=== PATIENT | male | born 1990 | race Caucasian/White ===

== ENCOUNTER 2016-05-03 21:44 | Emergency (ER) | payer BC, OTHER ==
[2016-05-03] MEDS ORDERED: SODIUM CHLORIDE 0.9% 1,000 ML IV STA ×2 (22:24)
[2016-05-03] MEDS ORDERED: METOCLOPRAMIDE 5 MG/ML 2 ML VIAL IVP STA (22:24)
[2016-05-03] MEDS ORDERED: HYDROmorphone 1 MG/ML 1 ML SYRINGE IVP STA (22:24)
--- NOTE | 2016-05-03 22:28 | ED ---
General Adult HPI - General Source: patient, RN notes reviewed, old records reviewed Mode of arrival: wheelchair Limitations: no limitations <Boy Johnston - Last Filed: 05/04/16 00:40> <John Brunson - Last Filed: 05/04/16 02:02> - General Chief complaint: Nausea/Vomiting/Diarrhea Stated complaint: NVD/Dizziness Time Seen by Provider: 05/03/16 22:15 - History of Present Illness Initial comments: Chief complaint history of present illness is a 25-year-old male with a history of Crohn's disease. He works at the [employer] and pupillary had vomiting and diarrhea. Patient thinks he may be having a flare of his Crohn's. He has not been taking his Remicade because the insurance hasn't okayed the restart of his Remicade. Do not see any blood in the vomit or diarrhea. (Boy Johnston) - Related Data Home Medications Medication Instructions Recorded Confirmed Omeprazole 20 mg PO DAILY 05/03/16 05/03/16 Previous Rx's Medication Instructions Recorded Acetaminophen-Codeine 300-30mg 1 tab PO Q6H PRN #20 tablet 05/04/16 [Tylenol #3] Allergies Allergy/AdvReac Type Severity Reaction Status Date / Time No Known Allergies Allergy Verified 01/31/16 01:32 Review of Systems ROS Other: All systems not noted in ROS Statement are negative. <Boy Johnston - Last Filed: 05/04/16 00:40> ROS Other: All systems not noted in ROS Statement are negative. <John Brunson - Last Filed: 05/04/16 02:02> ROS Statement: Those systems with pertinent positive or pertinent negative responses have been documented in the HPI. Review of systems no headache no visual acuity changes no chest pain or shortness of breath he has discomfort to the abdomen on the right side than the left. Nausea vomiting diarrhea ongoing for approximately 2 days. All systems reviewed were otherwise negative. Past medical problems significant for Crohn' s disease. Surgeries include bowel resection was Crohn's as well as cholecystectomy. Family history no cancer problems. Patient denies ALLERGIES nonsmoker drinks alcohol rarely socially. (Boy Johnston) Past Medical History Additional Past Medical History / Comment(s): CROHN'S History of Any Multi-Drug Resistant Organisms: None Reported Past Surgical History: Bowel Resection, Cholecystectomy Past Anesthesia/Blood Transfusion Reactions: No Reported Reaction Past Psychological History: No Psychological Hx Reported Smoking Status: Never smoker Past Alcohol Use History: Rare Past Drug Use History: Marijuana - Past Family History Mother Family Medical History: Diabetes Mellitus Additional Family Medical History / Comment(s): Heart disease Father Family Medical History: No Reported History <Boy Johnston - Last Filed: 05/04/16 00:40> General Exam Limitations: no limitations <PrestonBoy - Last Filed: 05/04/16 00:40> <John Brunson - Last Filed: 05/04/16 02:02> - General Exam Comments Initial Comments: General: The patient is awake and alert, in moderate distress because of nausea vomiting diarrhea abdominal pain mainly in the right side. Vital signs show temperature 98.1 pulse 74 respiratory rate 18 pulse ox 99% room air blood pressure 125/80. Eye: Pupils are equal, round and reactive to light, extra-ocular movements are intact ; there is normal conjunctiva bilaterally. Ears, nose, mouth and throat: There are moist mucous membranes Neck: The neck is supple, there is no tenderness Cardiovascular: There is a regular rate and rhythm. No murmur, rub or gallop is appreciated. Respiratory: Lungs are clear to auscultation, respirations are non-labored, breath sounds are equal. No wheezes, stridor, rales, or rhonchi. Gastrointestinal: Soft, non-distended, mildly tender right mid abdomen, abdomen without masses or organomegaly noted. There is no rebound or guarding present. No CVA tenderness. Bowel sounds are unremarkable. Back: There is no tenderness to palpation in the midline. There is no obvious deformity. No rashes noted. Musculoskeletal: Normal ROM, no tenderness, There is no pedal edema. There is no calf tenderness or swelling. Sensation intact. Pulses equal bilaterally 2+. Neurological: No neuro deficits. Skin: Skin is warm and dry and no rashes or lesions are noted. (Boy Johnston) Course <Boy Johnston - Last Filed: 05/04/16 00:40> <John Brunson - Last Filed: 05/04/16 02:02> Vital Signs 05/03/16 05/03/16 05/04/16 22:08 23:12 00:20 Temperature 98.1 F 97.7 F Pulse Rate 74 88 78 Respiratory 18 18 20 Rate Blood Pressure 125/80 135/68 123/75 O2 Sat by Pulse 99 99 98 Oximetry 05/04/16 01:58 Temperature 98.9 F Pulse Rate 85 Respiratory 18 Rate Blood Pressure 128/73 O2 Sat by Pulse 100 Oximetry - Reevaluation(s) Reevaluation #1: 05/04/16 02:00 Reevaluation patient reveals that he feels much improved this time we a long discussion regarding the findings she would like to go home he placed on Tylenol 3 for when necessary pain is follow-up with his doctor and return when necessary (John Brunson) Medical Decision Making - Lab Data Result diagrams: 05/03/16 23:00 05/03/16 23:00 <Boy Johnston - Last Filed: 05/04/16 00:40> - Lab Data Result diagrams: 05/03/16 23:00 05/03/16 23:00 <John Brunson - Last Filed: 05/04/16 02:02> - Medical Decision Making Medical decision making; white count 8 hemoglobin 14 hematocrit of 42. Potassium 3.3, BUN 9 creatinine 0.8 with a GFR greater than 60. Amylase lipase within normal limits. Chest x-ray was done and reviewed by radiologist's his final impression is normal chest no change. As read by Dr. Sr X-ray of the abdomen was done and reviewed by radiologist his impression is bowel gas pattern is normal. There is no sign of intestinal obstruction or pneumoperitoneum. Fecal pattern is normal. There are clips from cholecystectomy. Lung bases are clear. There is no sign of a mass. There are no pathologic calcifications over the kidneys. There are surgical clips in the right mid abdomen. Impression; nonacute abdomen. No change. As read by Dr. Sr Plant this size for rehydration, pain management and IV site Medrol. The patient feels a thinks he may build go home tonight. Final disposition will be determined by Dr. Brunson (Boy Johnston) - Lab Data Lab Results 05/03/16 05/03/16 Range/Units 23:00 23:00 WBC 8.0 (3.8-10.6) k/uL RBC 4.90 (4.30-5.90) m/uL Hgb 14.6 (13.0-17.5) gm/dL Hct 42.0 (39.0-53.0) % MCV 85.8 (80.0-100.0) fL MCH 29.8 (25.0-35.0) pg MCHC 34.8 (31.0-37.0) g/dL RDW 12.9 (11.5-15.5) % Plt Count 258 (150-450) k/uL Neutrophils % 56 % Lymphocytes % 23 % Monocytes % 12 % Eosinophils % 4 % Basophils % 1 % Neutrophils # 4.5 (1.3-7.7) k/uL Lymphocytes # 1.9 (1.0-4.8) k/uL Monocytes # 1.0 (0-1.0) k/uL Eosinophils # 0.3 (0-0.7) k/uL Basophils # 0.1 (0-0.2) k/uL Sodium 142 (137-145) mmol/L Potassium 3.3 L (3.5-5.1) mmol/L Chloride 108 H (98-107) mmol/L Carbon Dioxide 20 L (22-30) mmol/L Anion Gap 14 mmol/L BUN 9 (9-20) mg/dL Creatinine 0.80 (0.66-1.25) mg/dL Est GFR (MDRD) Af Amer >60 (>60 ml/min/1.73 sqM) Est GFR (MDRD) Non-Af >60 (>60 ml/min/1.73 sqM) Glucose 83 (74-99) mg/dL Calcium 9.2 (8.4-10.2) mg/dL Total Bilirubin 4.1 H (0.2-1.3) mg/dL AST 31 (17-59) U/L ALT 71 (21-72) U/L Alkaline Phosphatase 97 (38-126) U/L Total Protein 7.0 (6.3-8.2) g/dL Albumin 4.2 (3.5-5.0) g/dL Amylase 47 (30-110) U/L Lipase 42 (23-300) U/L Disposition <Boy Johnston - Last Filed: 05/04/16 00:40> <John Brunson - Last Filed: 05/04/16 02:02> Clinical Impression: Abdominal pain, Crohns disease Disposition: HOME SELF-CARE Condition: Good Instructions: Abdominal Pain (ED), Crohn Disease (ED) Prescriptions: Acetaminophen-Codeine 300-30mg [Tylenol #3] 1 tab PO Q6H PRN #20 tablet PRN Reason: Pain
--- NOTE | 2016-05-03 23:21 | XR ---
EXAMINATION TYPE: XR chest 2V DATE OF EXAM: 05/03/2016 11:15 PM COMPARISON: 03/24/2015 HISTORY: Cough and cold TECHNIQUE: Frontal and lateral views of the chest are obtained. FINDINGS: Heart and mediastinum are normal. Lungs are clear. Diaphragm is normal. Bony thorax is int act. The pulmonary vascularity is normal. IMPRESSION: Normal chest. No change.
[2016-05-03 23:23] LABS: Basophils # (A) 0.1 k/uL (0-0.2); Basophils % (A) 1 %; CH 30.9; CHCM 36.2; Eosinophils # (A) 0.3 k/uL (0-0.7); Eosinophils % (A) 4 %; HDW 2.97; HGB 14.6 gm/dL (13.0-17.5); Luc # (Auto) 0.29; Luc % (Auto) 4; Lymphocytes # (A) 1.9 k/uL (1.0-4.8); Lymphocytes % (A) 23 %; MCH 29.8 pg (25.0-35.0); MCHC 34.8 g/dL (31.0-37.0); MCV 85.8 fL (80.0-100.0); Mean Platelet Volume 7.8; Monocytes % (A) 12 %; Neutrophils # (A) 4.5 k/uL (1.3-7.7); Neutrophils % (A) 56 %; RDW 12.9 % (11.5-15.5); WBC (Perox) 7.86
[2016-05-03 23:37] LABS: ALT 71 U/L (21-72); AST 31 U/L (17-59); Alkaline Phosphatase 97 U/L (38-126); Amylase 47 U/L (30-110); Anion Gap 14 mmol/L; Blood Urea Nitrogen 9 mg/dL (9-20); Calcium 9.2 mg/dL (8.4-10.2); Carbon Dioxide 20 mmol/L (22-30); Chloride 108 mmol/L (98-107); Glucose 83 mg/dL (74-99); Non-African American GFR(MDRD) >60 (>60 ml/min/1.73 sqM); Potassium 3.3 mmol/L (3.5-5.1); Sodium 142 mmol/L (137-145); Total Bilirubin 4.1 mg/dL (0.2-1.3)
--- NOTE | 2016-05-04 00:10 | XR ---
EXAMINATION TYPE: XR abdomen 2V DATE OF EXAM: 05/03/2016 11:50 PM COMPARISON: 12/26/2015 HISTORY: Abdominal pain TECHNIQUE: 2 views FINDINGS: Bowel gas pattern is normal. There is no sign of intestinal obstruction or pneumoperitoneum . Fecal pattern is normal. There are clips from cholecystectomy. Lung bases are clear. There is no si gn of a mass. There are no pathologic calcifications over the kidneys. There are surgical clips in th e right mid abdomen. IMPRESSION: Nonacute abdomen. No change.
[2016-05-04] MEDS ORDERED: methylPREDNISolone SOD SUCCI 125 MG/2 ML VIAL IV STA (00:43)
[2016-05-04] MEDS ORDERED: HYDROmorphone 1 MG/ML 1 ML SYRINGE IVP STA (00:43)
[2016-05-04 01:59] VITALS: BP 128/73; PULSE 85; RESP 18; TEMP 98.9
== END 2016-05-04 02:08 | disposition home or self-care (01) ==
LOC: EC 21:44
DX: K50.90 Crohn's disease, unspecified, without complications (principal); Z79.899 Other long term (current) drug therapy
CPT/HCPCS: 36415; 80053; 82150; 83690; 85025; 71020; 74020; 99284; 96374; 96375 ×2; 96376; 96361 ×3; J2765; J2930; J1170 ×2

== ENCOUNTER 2016-05-05 17:54 | Inpatient (IN) | payer BC, OTHER ==
[2016-05-05] MEDS ORDERED: SODIUM CHLORIDE 0.9% 2,000 ML IV STA (18:35)
[2016-05-05] MEDS ORDERED: SODIUM CHLORIDE 0.9% 1,000 ML IV STA (18:35)
[2016-05-05] MEDS ORDERED: ONDANSETRON 4 MG/2 ML VIAL IVP STA ×2 (18:35→21:26)
[2016-05-05] MEDS ORDERED: PANTOPRAZOLE 40 MG/10 ML VIAL IVP STA (18:35)
[2016-05-05] MEDS ORDERED: KETOROLAC 30 MG/ML 1 ML VIAL IVP STA (18:36)
[2016-05-05 18:50] LABS: Basophils # (A) 0.1 k/uL (0-0.2); Basophils % (A) 1 %; Eosinophils # (A) 0.2 k/uL (0-0.7); Eosinophils % (A) 3 %; HCT 44.3 % (39.0-53.0); HGB 14.6 gm/dL (13.0-17.5); Luc # (Auto) 0.22; Luc % (Auto) 3; Lymphocytes # (A) 1.9 k/uL (1.0-4.8); Lymphocytes % (A) 29 %; MCH 29.5 pg (25.0-35.0); MCHC 33.1 g/dL (31.0-37.0); MCV 89.2 fL (80.0-100.0); Mean Platelet Volume 8.1; Monocytes # (A) 0.7 k/uL (0-1.0); Monocytes % (A) 10 %; Neutrophils # (A) 3.6 k/uL (1.3-7.7); Neutrophils % (A) 54 %; RBC 4.97 m/uL (4.30-5.90); RDW 13.3 % (11.5-15.5); WBC 6.7 k/uL (3.8-10.6); WBC (Perox) 6.91
[2016-05-05 18:59] LABS: ALT 390 U/L (21-72); AST 225 U/L (17-59); Alkaline Phosphatase 139 U/L (38-126); Amylase 64 U/L (30-110); Anion Gap 14 mmol/L; Blood Urea Nitrogen 10 mg/dL (9-20); Calcium 9.2 mg/dL (8.4-10.2); Carbon Dioxide 22 mmol/L (22-30); Chloride 107 mmol/L (98-107); Glucose 89 mg/dL (74-99); Magnesium 1.8 mg/dL (1.6-2.3); Non-African American GFR(MDRD) >60 (>60 ml/min/1.73 sqM); Potassium 3.6 mmol/L (3.5-5.1); Sodium 143 mmol/L (137-145); Total Bilirubin 3.9 mg/dL (0.2-1.3); Total Protein 7.1 g/dL (6.3-8.2)
[2016-05-05] MEDS ORDERED: HYDROmorphone 1 MG/ML 1 ML SYRINGE IM STA ×2 (19:16→21:19)
--- NOTE | 2016-05-05 19:22 | XR ---
Abdomen HISTORY: Pain Frontal view of the abdomen on 2 images correlated to prior abdomen dated 03 May 2016 There is no pneumoperitoneum or bowel obstruction. Air-fluid levels are present. Surgical clips in th e right upper quadrant. Bowel suture also present. Postop changes. There may be an underlying ileus, follow-up as indicated
[2016-05-05 19:57] LABS: Appearance,Urine Clear (Clear); Bilirubin,Urine 1+ (Negative); Glucose,Urine (UA) Negative (Negative); Ketones,Urine Trace (Negative); Leukocyte Esterase,Urine Negative (Negative); Nitrite,Urine Negative (Negative); Protein,Urine Trace (Negative); Specific Gravity,Urine 1.018 (1.001-1.035); UA Billing (MACRO vs. MICRO) CHEM
--- NOTE | 2016-05-05 21:23 | ED ---
Abdominal Pain HPI - General Chief Complaint: Abdominal Pain Stated Complaint: Abd.pain Time Seen by Provider: 05/05/16 18:17 Source: patient, family, RN notes reviewed, old records reviewed Mode of arrival: wheelchair Limitations: no limitations - History of Present Illness Initial Comments: This is a 25-year-old male history Crohn's disease who came back in [facility] for complaints of abdominal pain nausea vomiting. Is here recently did get improvement was sent home since she his request he that time because of the above stated symptoms also his mother states [facility] The pain is severe sharp dull aching in nature midabdominal nothing on the ordinary however. He has had a cholecystectomy in the past he has had episodes of jaundice apparently per his mother and elevated liver enzymes. MD Complaint: abdominal pain, other - Related Data Home Medications Medication Instructions Recorded Confirmed Omeprazole 20 mg PO DAILY 05/03/16 05/05/16 Previous Rx's Medication Instructions Recorded Acetaminophen-Codeine 300-30mg 1 tab PO Q6H PRN #20 tablet 05/04/16 [Tylenol #3] Allergies Allergy/AdvReac Type Severity Reaction Status Date / Time No Known Allergies Allergy Verified 05/05/16 18:29 Review of Systems ROS Statement: Those systems with pertinent positive or pertinent negative responses have been documented in the HPI. ROS Other: All systems not noted in ROS Statement are negative. Past Medical History Additional Past Medical History / Comment(s): CROHN'S History of Any Multi-Drug Resistant Organisms: None Reported Past Surgical History: Bowel Resection, Cholecystectomy Past Anesthesia/Blood Transfusion Reactions: No Reported Reaction Past Psychological History: No Psychological Hx Reported Smoking Status: Never smoker Past Alcohol Use History: Rare Past Drug Use History: Marijuana - Past Family History Mother Family Medical History: Diabetes Mellitus Additional Family Medical History / Comment(s): Heart disease Father Family Medical History: No Reported History General Exam - General Exam Comments Initial Comments: This is a well-developed well-nourished awake alert oriented x 3 male Limitations: no limitations Course Vital Signs 05/05/16 05/05/16 18:12 21:18 Temperature 98.4 F 98.0 F Pulse Rate 64 72 Respiratory 17 20 Rate Blood Pressure 115/79 127/86 O2 Sat by Pulse 100 98 Oximetry Medical Decision Making - Medical Decision Making I did reevaluate the patient several occasions he get them all improvement I did discuss the case with him and his family and with Dr. De La Garza the patient will be admitted with consultation by GI. - Lab Data Result diagrams: 05/05/16 18:25 05/05/16 18:25 Lab Results 05/05/16 05/05/16 05/05/16 Range/Units 18:25 18:25 19:35 WBC 6.7 (3.8-10.6) k/uL RBC 4.97 (4.30-5.90) m/uL Hgb 14.6 (13.0-17.5) gm/dL Hct 44.3 (39.0-53.0) % MCV 89.2 (80.0-100.0) fL MCH 29.5 (25.0-35.0) pg MCHC 33.1 (31.0-37.0) g/dL RDW 13.3 (11.5-15.5) % Plt Count 272 (150-450) k/uL Neutrophils % 54 % Lymphocytes % 29 % Monocytes % 10 % Eosinophils % 3 % Basophils % 1 % Neutrophils # 3.6 (1.3-7.7) k/uL Lymphocytes # 1.9 (1.0-4.8) k/uL Monocytes # 0.7 (0-1.0) k/uL Eosinophils # 0.2 (0-0.7) k/uL Basophils # 0.1 (0-0.2) k/uL Sodium 143 (137-145) mmol/L Potassium 3.6 (3.5-5.1) mmol/L Chloride 107 (98-107) mmol/L Carbon Dioxide 22 (22-30) mmol/L Anion Gap 14 mmol/L BUN 10 (9-20) mg/dL Creatinine 0.92 (0.66-1.25) mg/dL Est GFR (MDRD) Af Amer >60 (>60 ml/min/1.73 sqM) Est GFR (MDRD) Non-Af >60 (>60 ml/min/1.73 sqM) Glucose 89 (74-99) mg/dL Calcium 9.2 (8.4-10.2) mg/dL Magnesium 1.8 (1.6-2.3) mg/dL Total Bilirubin 3.9 H (0.2-1.3) mg/dL AST 225 H (17-59) U/L ALT 390 H (21-72) U/L Alkaline Phosphatase 139 H (38-126) U/L Total Protein 7.1 (6.3-8.2) g/dL Albumin 4.2 (3.5-5.0) g/dL Amylase 64 (30-110) U/L Lipase 54 (23-300) U/L Urine Color Dark Yellow Urine Appearance Clear (Clear) Urine pH 6.0 (5.0-8.0) Ur Specific [place] 1.018 (1.001-1.035) Urine Protein Trace H (Negative) Urine Glucose (UA) Negative (Negative) Urine Ketones Trace H (Negative) Urine Blood Negative (Negative) Urine Nitrate Negative (Negative) Urine Bilirubin 1+ H (Negative) Urine Urobilinogen 6.0 (<2.0) mg/dL Ur Leukocyte Esterase Negative (Negative) - Radiology Data Radiology results: report reviewed (I did review the x-rays no acute findings some evidence of a), image reviewed Disposition Clinical Impression: Abdominal pain, Exacerbation of Crohn's disease, Jaundice Disposition: ADMITTED IP TO THIS [facility] Condition: Stable
[2016-05-05] MEDS ORDERED: NALOXONE 0.4 MG/ML 1 ML VIAL IV PRN (21:24)
[2016-05-05 22:36] VITALS: BMI 29.0
[2016-05-05] MEDS: SODIUM CHLORIDE 0.9% 1,000 ML IV SCH (22:39)
[2016-05-05] MEDS ORDERED: PROCHLORPERAZINE 10 MG TAB PO PRN (23:10)
[2016-05-06] MEDS: HYDROmorphone 1 MG/ML 1 ML SYRINGE IV PRN ×8 (00:29→21:55)
[2016-05-06 02:10] LABS: Glucose,Whole Blood 83 mg/dL (75-99)
[2016-05-06] MEDS: SODIUM CHLORIDE 0.9% 1,000 ML IV SCH ×3 (04:14→21:00)
[2016-05-06] MEDS: ONDANSETRON 4 MG/2 ML VIAL IVP PRN ×3 (06:12→21:55)
[2016-05-06 07:36] LABS: Glucose,Whole Blood 75 mg/dL (75-99)
[2016-05-06] MEDS: PANTOPRAZOLE 40 MG/10 ML VIAL IVP SCH ×2 (08:46→21:55)
--- NOTE | 2016-05-06 09:26 | US ---
EXAMINATION TYPE: US abdomen limited DATE OF EXAM: 05/06/2016 8:25 AM COMPARISON: Previous study dated 03/24/2015. CLINICAL HISTORY: Rule out pancreatic mass. EXAM MEASUREMENTS: Liver Length: 14.3 cm Gallbladder Wall: Surgically absent cm CBD: 0.4 cm Right Kidney: 9.6 x 3.8 x 4.5 cm TECHNOLOGIST IMPRESSION: wnl Pancreas: portions visualized wnl, partially obscured by bowel gas Liver: Increased attenuation, echogenic Gallbladder: Surgically absent Evidence for sonographic Swartz's sign: no CBD: wnl Right Kidney: wnl IMPRESSION: Visualized portions of the pancreas appear normal. No pancreatic masses seen at this time.
[2016-05-06 11:56] LABS: Glucose,Whole Blood 71 mg/dL (75-99)
--- NOTE | 2016-05-06 13:08 | HP ---
DATE OF ADMISSION: A 25-year-old with history of Crohn's disease and with history of primary sclerosing cholangitis came in with complaints of nausea, vomiting and increased yellowish discoloration. Patient's bilirubin was 3.9 when he came in with minimally elevated AST and ALT secondary to primary sclerosing cholangitis. The patient is suppose to take Remicade Patient is awaiting insurance approval for that. Because of nausea and vomiting, the patient came into the hospital. Patient was complaining of 10/10, sharp pain in the right mid and lower abdominal quadrants. Denied any diarrhea. Nonradiating pain in that area. REVIEW OF SYSTEMS: CONSTITUTIONAL: No fever, no malaise, no fatigue. HEENT: No recent visual problems or hearing problems. Denied any sore throat. CARDIOVASCULAR: No chest pain, orthopnea, PND, no palpitations, no syncope. PULMONARY: No shortness of breath, no cough, no hemoptysis. GASTROINTESTINAL: As described in HPI. NEUROLOGICAL: No headaches, no weakness, no numbness. HEMATOLOGICAL: Denies any bleeding or petechiae. GENITOURINARY: Denies any burning micturition, frequency, or urgency. MUSCULOSKELETAL/RHEUMATOLOGICAL: Denies any joint pain, swelling, or any muscle pain. ENDOCRINE: Denies any polyuria or polydipsia. The rest of the 14 point review of systems is negative. HOME MEDICATIONS: 1. Omeprazole. 2. Tylenol with Codeine. PAST MEDICAL HISTORY: Significant for Crohn's, primary biliary cirrhosis. Patient had a bowel resection, cholecystectomy. SOCIAL HISTORY: Denied any smoking or alcohol abuse. Occasional use of marijuana. FAMILY HISTORY: Mother had diabetes mellitus and heart disease. Father no reported history. PHYSICAL EXAMINATION: VITAL SIGNS: Temperature 97.9, pulse of 64, respiratory rate of 17, blood pressure is 114/72, saturating at 97% on room air. GENERAL: The patient is alert and oriented x3, not in any acute distress. Well developed, well nourished. HEENT: Pupils are round and equally reacting to light. EOMI. No scleral icterus. No conjunctival pallor. Normocephalic, atraumatic. No pharyngeal erythema. No thyromegaly. CARDIOVASCULAR: S1 and S2 present. No murmurs, rubs, or gallops. PULMONARY: Chest is clear to auscultation, no wheezing or crackles. ABDOMEN: Minimal tenderness in the right middle and lower quadrants. No rebound or rigidity. Abdomen is soft. MUSCULOSKELETAL: No joint swelling or deformity. EXTREMITIES: No cyanosis, clubbing, or pedal edema. NEUROLOGICAL: Gross neurological examination did not reveal any focal deficits. SKIN: No rashes. LABORATORY DATA: CBC, CMP are abnormal for elevated bilirubin of 3.9, AST 225 and ALT of 390. Trace protein in the urine, trace ketones in the urine, 1+ bilirubin in the urine. ASSESSMENT AND PLAN: 1. Exacerbation of Crohn's . Gastroenterology is evaluating right now I will leave the decision of starting on any steroids to them. Patient should get Remicade, awaiting approval as mentioned above. 2. Elevated bilirubin secondary to primary biliary cirrhosis. Patient underwent extensive evaluation for that in the past. 3. Elevated liver enzymes secondary to that as well. Will repeat liver enzymes tomorrow to make sure they are not going up. 4. Marijuana use. Counseling was provided regarding that. Patient should be started on clear liquid diet as tolerated. Continue with pain medications. I will obtain an ESR and CRP.
--- NOTE | 2016-05-06 13:14 | P.CONS ---
History of Present Illness - Reason for Consult Consult date: 05/06/16 Jaundice Requesting physician: Jonas Saxena - History of Present Illness 25-year-old gentleman patient Dr. 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 Consultation requested for jaundice. Patient noticed his urine to be more dark over the last few days as well as his friends noticing him to appear more yellow. Denies acholic stools. Denies abdominal pain but reports fever of 102 on Wednesday. He has been afebrile since admission. He is followed closely by [facility] wick tender Dr. Crocker; last visit was March 2016 with recommendations to start Remicade however due to insurance changes he is waiting for insurance approval. Denies hematemesis, hematochezia, or melena. White count 6.7. Hemoglobin 14.6. Total bilirubin 4.1-3.9. AST 31-225. ALT 71-390. Alkaline phosphates 139. No changes in medications. No sick contacts. No recent travels. Ultrasound abdomen reported visualized portions of the pancreas normal. CBD 0.4 cm. Upon review of medical records average total bilirubin can range between 1.5- 3.1. Review of Systems Constitutional: Denies fever, chills, sweats, weight gain, or loss. HEENT: Negative for migraines, blurred vision or loss, earaches, drainage, tinnitus, oral mucosal lesions, dysphagia, or odynophagia. Cardiac: Negative for chest pain, arrhythmias, or palpitation. Respiratory: Negative for shortness of breath, hemoptysis, cough, or sputum production. Gastrointestinal: See HPI for pertinent findings. Genitourinary: Negative for hematuria, urgency, frequency, polyuria, dysuria, or penile discharge. Musculoskeletal: Negative for muscle aches, swelling, arthritis, and arthralgias. Neurologic: Negative for stroke or TIA. Endocrine: Negative for thyroid problems. Skin: Negative for rash or itching. Psychiatric: Negative history for depression and anxiety All systems: negative (See HPI) Past Medical History Additional Past Medical History / Comment(s): CROHN'S History of Any Multi-Drug Resistant Organisms: None Reported Past Surgical History: Bowel Resection, Cholecystectomy Past Anesthesia/Blood Transfusion Reactions: No Reported Reaction Past Psychological History: No Psychological Hx Reported Smoking Status: Never smoker Past Alcohol Use History: Rare Past Drug Use History: Marijuana - Past Family History Mother Family Medical History: Diabetes Mellitus Additional Family Medical History / Comment(s): Heart disease Father Family Medical History: No Reported History Medications and Allergies Home Medications Medication Instructions Recorded Confirmed Type Omeprazole 20 mg PO DAILY 05/03/16 05/05/16 History Allergies Allergy/AdvReac Type Severity Reaction Status Date / Time No Known Allergies Allergy Verified 05/05/16 18:29 Physical Exam Vitals: Vital Signs Temp Pulse Resp BP Pulse Ox 05/06/16 07:58 17 05/06/16 07:00 97.9 F 64 12 114/72 97 05/05/16 23:00 97.9 F 61 17 133/66 98 Intake and Output 05/05/16 05/06/16 05/06/16 22:59 06:59 14:59 Intake Total 1200 300 Output Total 300 Balance 1200 0 Intake: IV 300 Sodium Chloride 0.9% 1, 300 000 ml @ 150 mls/hr IV . Q6H40M [facility] Rx#:[id number] Intake, IV Titration 1200 Amount Sodium Chloride 0.9% 1, 1200 000 ml @ 150 mls/hr IV . Q6H40M [facility] Rx#:[id number] Output: Urine 300 Other: Voiding Method Toilet Toilet Urinal # Voids 1 Weight 69.853 kg Results CBC & Chem 7: 05/05/16 18:25 05/05/16 18:25 Labs: Abnormal Lab Results - Last 24 Hours (Table) 05/06/16 Range/Units 11:54 POC Glucose (mg/dL) 71 L (75-99) mg/dL US - abdomen: report reviewed (Reviewed by Dr. Salter) Assessment and Plan (1) Jaundice Narrative/Plan: 25-year-old gentleman with a history of primary sclerosing cholangitis and underlying Crohn's ileitis presents with jaundice with elevated transaminases and hyperbilirubinemia. Jaundice is secondary to his underlying PSC presently not on maintenance medications due to insurance issues. Status: Acute (2) Primary sclerosing cholangitis Status: Chronic (3) Crohn's ileitis Status: Chronic Plan: 1. Avoid steroids. 2. Actigall 300 mg twice daily. Patient is waiting for insurance approval to start Remicade. 3. Supportive measures IV hydration. Repeat chemistries in the morning. 4. Will follow with you. Thank you for this kind referral and the opportunity to participate in the care of your patient. This consultation was discussed with Dr. Salter. The impression and plan of care have been directed as dictated.
[2016-05-06 17:16] LABS: Glucose,Whole Blood 75 mg/dL (75-99)
[2016-05-06] MEDS: URSODIOL 300 MG CAP PO SCH (17:49)
[2016-05-06 20:47] LABS: Glucose,Whole Blood 80 mg/dL (75-99)
[2016-05-07] MEDS: HYDROmorphone 1 MG/ML 1 ML SYRINGE IV PRN ×8 (01:05→22:54)
[2016-05-07 02:35] LABS: Glucose,Whole Blood 86 mg/dL (75-99)
[2016-05-07] MEDS: SODIUM CHLORIDE 0.9% 1,000 ML IV SCH ×5 (03:06→23:05)
[2016-05-07 07:23] LABS: Glucose,Whole Blood 72 mg/dL (75-99)
[2016-05-07] MEDS: PANTOPRAZOLE 40 MG/10 ML VIAL IVP SCH ×2 (07:46→21:15)
[2016-05-07] MEDS: URSODIOL 300 MG CAP PO SCH ×2 (07:47→16:56)
[2016-05-07] MEDS: ONDANSETRON 4 MG/2 ML VIAL IVP PRN ×2 (08:18→18:31)
[2016-05-07 09:24] LABS: CH 30.5; CHCM 33.9; HCT 41.5 % (39.0-53.0); HDW 2.89; HGB 13.7 gm/dL (13.0-17.5); MCH 29.9 pg (25.0-35.0); MCHC 33.1 g/dL (31.0-37.0); MCV 90.4 fL (80.0-100.0); Mean Platelet Volume 7.2; RBC 4.59 m/uL (4.30-5.90); WBC 5.8 k/uL (3.8-10.6)
[2016-05-07 10:07] LABS: ALT 230 U/L (21-72); AST 70 U/L (17-59); Alkaline Phosphatase 123 U/L (38-126); Anion Gap 13 mmol/L; Blood Urea Nitrogen 6 mg/dL (9-20); Calcium 8.7 mg/dL (8.4-10.2); Carbon Dioxide 24 mmol/L (22-30); Chloride 106 mmol/L (98-107); Glucose 82 mg/dL (74-99); Non-African American GFR(MDRD) >60 (>60 ml/min/1.73 sqM); Potassium 3.6 mmol/L (3.5-5.1); Sodium 143 mmol/L (137-145); Total Bilirubin 3.2 mg/dL (0.2-1.3); Total Protein 6.3 g/dL (6.3-8.2)
[2016-05-07 11:16] LABS: Glucose,Whole Blood 86 mg/dL (75-99)
--- NOTE | 2016-05-07 11:48 | P.PN ---
Subjective Principal diagnosis: Jaundice primary sclerosing cholangitis Crohn's disease 25-year-old male well-known to the GI service with a history of primary sclerae and cholangitis and underlying Crohn's disease admitted with jaundice. Liver function tests stable. Reports mild abdominal pain. Tolerating liquids. Afebrile. Objective - Vital Signs Vital signs: Vital Signs Temp 98.2 F 05/07/16 07:00 Pulse 65 05/07/16 08:00 Resp 18 05/07/16 08:00 BP 118/77 05/07/16 07:00 Pulse Ox 98 05/07/16 07:00 Intake & Output 05/06/16 05/07/16 05/07/16 18:59 06:59 18:59 Intake Total 1050 1650 300 Output Total 300 300 Balance 750 1650 0 Weight 69.853 kg Intake: IV 1050 1350 Sodium Chloride 0.9% 1, 1050 1350 000 ml @ 150 mls/hr IV . Q6H40M OTILIA Rx#:[id number] Oral 300 300 Output: Urine 300 300 Other: Voiding Method Toilet Toilet Toilet Urinal Urinal Urinal # Voids 2 2 2 - Exam General appearance: The patient is alert, oriented, in no acute distress. Slightly jaundiced. HET: Head is normocephalic and atraumatic. Pupils are equal and reactive. Sclerae icterus. Oropharynx is clear without lesions. Neck: Supple without lymphadenopathy. Trachea midline. Heart: S1 S2. Regular rate and rhythm. Lungs: No crackles or wheezes are heard. Abdomen: Soft, mild tenderness midepigastrium right upper quadrant, nondistended with bowel sounds. No peritoneal signs. No palpable organomegaly or masses. Extremities: Normal skin color and turgor. No cyanosis, rash, ulceration, clubbing, or edema. Radial and pedal pulses are 2/4 bilaterally. Neurological: No focal deficits. Strength and sensation are grossly intact. - Labs CBC & Chem 7: 05/07/16 08:51 05/07/16 08:51 Labs: Abnormal Lab Results - Last 24 Hours (Table) 05/06/16 05/07/16 05/07/16 Range/Units 11:54 07:18 08:51 BUN 6 L (9-20) mg/dL POC Glucose (mg/dL) 71 L 72 L (75-99) mg/dL Total Bilirubin 3.2 H (0.2-1.3) mg/dL AST 70 H (17-59) U/L ALT 230 H (21-72) U/L Assessment and Plan (1) Jaundice Narrative/Plan: 25-year-old gentleman with a history of primary sclerosing cholangitis and underlying Crohn's ileitis presents with jaundice with elevated transaminases and hyperbilirubinemia. Jaundice is secondary to his underlying PSC presently not on maintenance medications due to insurance issues. Status: Acute (2) Primary sclerosing cholangitis Status: Chronic (3) Crohn's ileitis Status: Chronic Plan: 1. Avoid steroids. Advance diet as tolerated. 2. Actigall 300 mg twice daily. Patient is waiting for insurance approval to start Remicade. 3. Supportive measures IV hydration. Repeat chemistries in the morning. 4. Will follow with you. Assessment and plan of care discussed with Dr. Salter.
[2016-05-07 17:07] LABS: Glucose,Whole Blood 78 mg/dL (75-99)
--- NOTE | 2016-05-07 19:14 | PN ---
Patient is a 25-year-old with Crohn's disease, admitted for possibility of Crohn's exacerbation, although patient's steroids were discontinued as per recommendations from Gastroenterology. Patient is still unable to tolerate a diet very well, because of which I am holding his discharge, and patient was started on Ursodiol for his hyperbilirubinemia secondary to primary sclerosing cholangitis. His liver enzymes continue to be improving. REVIEW OF SYSTEMS: CARDIOVASCULAR: No chest pain, no orthopnea, no PND, no palpitations. PULMONARY: Denied any shortness of breath. No cough or hemoptysis. GASTROINTESTINAL: As described in HPI. NEUROLOGIC: No headaches, no weakness, no numbness. Medications were reviewed. PHYSICAL EXAMINATION: VITAL SIGNS: Temperature 97.7, pulse of 61, respiratory rate of 18. Blood pressure is 108/74. Saturating at 95% on room air. GENERAL: The patient is alert and oriented x3, not in any acute distress. Well developed, well nourished. HEENT: Pupils are round and equally reacting to light. Patient does have some scleral icterus. CARDIOVASCULAR: S1 and S2 present. No murmurs, rubs, or gallops. PULMONARY: Chest is clear to auscultation, no wheezing or crackles. ABDOMEN: Soft, nontender, nondistended, normoactive bowel sounds. No palpable organomegaly. MUSCULOSKELETAL: No joint swelling or deformity. EXTREMITIES: No cyanosis, clubbing, or pedal edema. NEUROLOGICAL: Gross neurological examination did not reveal any focal deficits. SKIN: No rashes. LABORATORY DATA: CBC, CMP are abnormal for mildly elevated bilirubin of 3.2. AST of 70. ALT of 230. ASSESSMENT AND PLAN: 1. Possible exacerbation of Crohn's. 2. Primary sclerosing cholangitis with elevated liver enzymes and elevated bilirubin, for which patient is on Ursodiol as a binding agent for bilirubin. 3. Marijuana use. Counseling was provided. 4. Nausea, vomiting secondary to probable Crohn's exacerbation. PLAN: As mentioned above. Continue to advance the diet. Continue Ursodiol. Patient is awaiting approval for Remicade.
[2016-05-07 19:55] LABS: Glucose,Whole Blood 73 mg/dL (75-99)
[2016-05-07 21:06] LABS: Glucose,Whole Blood 114 mg/dL (75-99)
[2016-05-07 22:48] VITALS: RESP 16
[2016-05-08] MEDS: HYDROmorphone 1 MG/ML 1 ML SYRINGE IV PRN ×3 (01:38→08:12)
[2016-05-08 02:00] LABS: Glucose,Whole Blood 84 mg/dL (75-99)
[2016-05-08] MEDS: SODIUM CHLORIDE 0.9% 1,000 ML IV SCH (05:13)
[2016-05-08] MEDS: ONDANSETRON 4 MG/2 ML VIAL IVP PRN (05:14)
[2016-05-08 06:50] LABS: Glucose,Whole Blood 73 mg/dL (75-99)
[2016-05-08] MEDS: URSODIOL 300 MG CAP PO SCH (07:43)
[2016-05-08] MEDS: PANTOPRAZOLE 40 MG/10 ML VIAL IVP SCH (07:43)
[2016-05-08 08:25] VITALS: BP 116/83; PULSE 63; TEMP 98.1
[2016-05-08] MEDS ORDERED: traMADol 50 MG TAB PO PRN (08:50)
[2016-05-08 11:37] LABS: Glucose,Whole Blood 83 mg/dL (75-99)
--- NOTE | 2016-05-08 21:57 | DS ---
DATE OF ADMISSION: 05/05/2016 DATE OF DISCHARGE: 05/08/2016 25-year-old admitted with possibility of Crohn's exacerbation, although gastroenterology evaluated the patient they are not recommending any systemic steroids and they are awaiting for him to get Remicade approved and patient has primary cholangitis because of which patient has minimally elevated bilirubin for which patient using ( ). Patient is able to tolerate diet, but still complaining of abdominal pain. I believe patient has significant narcotic seeking behavior because of which I will discontinue the narcotics. Patient will be discharged today if cleared by gastroenterology, I will let them address medications regarding primary biliary cirrhosis that is ( ) and steroids versus Remicade. Otherwise, patient is clinically doing well. Patient was seen and examined on the day of discharge. Vitals stable. GENERAL: The patient is alert and oriented x3, not in any acute distress. Well developed, well nourished. HEENT: Pupils are round and equally reacting to light. EOMI. No scleral icterus. No conjunctival pallor. Normocephalic, atraumatic. No pharyngeal erythema. No thyromegaly. CARDIOVASCULAR: S1 and S2 present. No murmurs, rubs, or gallops. PULMONARY: Chest is clear to auscultation, no wheezing or crackles. ABDOMEN: Soft, nontender, nondistended, normoactive bowel sounds. No palpable organomegaly. MUSCULOSKELETAL: No joint swelling or deformity. EXTREMITIES: No cyanosis, clubbing, or pedal edema. NEUROLOGICAL: Gross neurological examination did not reveal any focal deficits. SKIN: No rashes. The patient will be discharged today. FINAL DIAGNOSES: 1. Possible exacerbation of Crohn's. 2. Primary ( ) cholangitis. 3. Marijuana use. 4. Nausea, vomiting. 5. Possible opiate abuse. The patient will be discharged today in stable medical condition to follow with Dr. Ledesma as an outpatient in 3 to 7 days. Gastroenterology will address discharge medications for ( ) and any medications for Crohn's disease.
== END 2016-05-08 12:25 | disposition home or self-care (01) | DRG 445 ==
LOC: EC 17:54 → 5MS5E 21:24
PROVIDERS: ADMIT Internal Medicine; ATTEND Internal Medicine
DX: K83.0 Cholangitis (principal); K50.00 Crohn's disease of small intestine without complications; K74.3 Primary biliary cirrhosis; F12.90 Cannabis use, unspecified, uncomplicated; G89.29 Other chronic pain; F11.10 Opioid abuse, uncomplicated
CPT/HCPCS: 36415; 74000; 76705; 80053; 81003; 82150; 83690; 83735; 85025; 85027; 96361; 96372; 96374; 96375; 96376; 99285

== ENCOUNTER → 2016-09-16 | Outpatient (CLI) | payer BC, OTHER ==
[~2016-09-16] MED LIST: ACETAMINOPHEN TAB 325 MG TAB PO ONE; HYDROCORTISONE SUCCINATE 100 MG/2 ML VIAL IV ONE; LORATADINE 10 MG TAB PO ONE; SODIUM CHLORIDE 0.9% 250 ML in EMPTY BAG 1 BAG IV PRN; SODIUM CHLORIDE 0.9% 500 ML in EMPTY BAG 1 BAG IV PRN
[2016-09-16 10:30] VITALS: TEMP 98.1
[2016-09-16 11:48] VITALS: PULSE 73; RESP 15
[2016-09-16 12:20] VITALS: BP 126/91
== END | disposition home or self-care (01) ==
LOC: PROCWHC3 09:58
PROVIDERS: ATTEND Student in an Organized Health Care Education/Training Program
DX: K50.80 Crohn's disease of both small and large intestine without complications (principal)
CPT/HCPCS: 96413; 96415; J1745

== ENCOUNTER → 2016-11-11 | Outpatient (CLI) | payer BC, OTHER ==
[~2016-11-11] MED LIST changes: -SODIUM CHLORIDE 0.9% 250 ML in EMPTY BAG 1 BAG IV PRN
[2016-11-11 07:39] VITALS: TEMP 98
[2016-11-11 08:40] LABS: Basophils % (A) 0 %; CHCM 33.8; Eosinophils # (A) 0.2 k/uL (0-0.7); Eosinophils % (A) 2 %; HDW 2.42; HGB 15.4 gm/dL (13.0-17.5); Luc % (Auto) 4; Lymphocytes # (A) 3.1 k/uL (1.0-4.8); Lymphocytes % (A) 32 %; MCH 31.2 pg (25.0-35.0); MCHC 32.8 g/dL (31.0-37.0); Monocytes # (A) 0.6 k/uL (0-1.0); Monocytes % (A) 6 %; Neutrophils # (A) 5.1 k/uL (1.3-7.7); Neutrophils % (A) 55 %; RBC 4.95 m/uL (4.30-5.90); RDW 13.7 % (11.5-15.5); WBC 9.4 k/uL (3.8-10.6); WBC (Perox) 9.03
[2016-11-11 08:58] LABS: Bilirubin, Delta 0.6 mg/dL (0.0-0.2); Total Bilirubin 3.4 mg/dL (0.2-1.3); Total Protein 7.3 g/dL (6.3-8.2)
[2016-11-11 09:39] VITALS: BP 114/78; PULSE 71; RESP 16
== END | disposition home or self-care (01) ==
LOC: PROCWHC3 07:24
PROVIDERS: ATTEND Student in an Organized Health Care Education/Training Program
DX: K50.80 Crohn's disease of both small and large intestine without complications (principal)
CPT/HCPCS: 80076; 85025; 96413; 96415; J1745

== ENCOUNTER 2018-02-25 05:59 | Emergency (ER) | payer BC, OTHER ==
[2018-02-25 06:13] VITALS: BP 151/86; PULSE 73; RESP 20; TEMP 98.3
[2018-02-25] MEDS ORDERED: ERYTHROMYCIN 5 MG/GM OPHTH OINT 3.5 GM TUBE RIGHT EYE STA (06:44)
--- NOTE | 2018-02-25 06:44 | ED ---
Eye Problem HPI - General Chief complaint: ENT Stated complaint: EYE PROBLEM Time Seen by Provider: 02/25/18 06:26 Source: patient, family Mode of arrival: ambulatory Limitations: no limitations - History of Present Illness Initial comments: This patient is a 27-year-old man presenting to be evaluated for what he suspects is a stye. He states he is having identical symptoms to a previous stye that was on his left upper eyelid. He states that for 2-3 days now he has noticed some discomfort to the upper eye lid. He also states noticed that there was some mild redness and some swelling developing. He has tried using warm compresses 4 the past 2 nights without much success and states that the symptoms have been getting a little worse. MD chief complaint: eye pain Onset/Timin -: days(s) Onset Description: gradual Location: right eye Place: home If Injury: none Eye Symptoms: redness Severity: mild If Pain, Quality: aching Consistency: constant Associated Symptoms: none Treatments Prior to Arrival: other (Warm compresses) - Related Data Patient Tetanus UTD: Yes Home Medications Medication Instructions Recorded Confirmed Omeprazole 20 mg PO DAILY 05/03/16 02/25/18 Allergies Allergy/AdvReac Type Severity Reaction Status Date / Time prochlorperazine Allergy Unknown Verified 02/25/18 06:13 [From Compazine] silver Allergy Rash/Hives Verified 02/25/18 06:13 [From Tegaderm AG Mesh] Review of Systems ROS Statement: Those systems with pertinent positive or pertinent negative responses have been documented in the HPI. ROS Other: All systems not noted in ROS Statement are negative. Constitutional: Denies: fever Eyes: Reports: eye pain. Denies: eye discharge, vision change Respiratory: Denies: cough Neurological: Denies: headache Past Medical History Additional Past Medical History / Comment(s): CROHN'S History of Any Multi-Drug Resistant Organisms: None Reported Past Surgical History: Bowel Resection, Cholecystectomy Past Anesthesia/Blood Transfusion Reactions: No Reported Reaction Past Psychological History: No Psychological Hx Reported Smoking Status: Never smoker Past Alcohol Use History: None Reported Past Drug Use History: None Reported - Past Family History Mother Family Medical History: Diabetes Mellitus Additional Family Medical History / Comment(s): Heart disease Father Family Medical History: No Reported History General Exam Limitations: no limitations General appearance: alert, in no apparent distress Head exam: Present: atraumatic, normocephalic Eye exam: Present: PERRL, EOMI, other (The patient does have right upper lid erythema and swelling. There is corneal and visible at the lateral aspect of the lid. Remainder of the examination of the eye is normal.). Absent: scleral icterus, conjunctival injection, nystagmus Skin exam: Present: warm, dry, intact, normal color, other (See the eye exam please). Absent: rash Course Vital Signs 02/25/18 06:10 Temperature 98.3 F Pulse Rate 73 Respiratory 20 Rate Blood Pressure 151/86 O2 Sat by Pulse 99 Oximetry Disposition Clinical Impression: Stye Disposition: HOME SELF-CARE Condition: Good Instructions: Stye (ED) Is patient prescribed a controlled substance at d/c from ED?: No Referrals: None,Stated [Primary Care Provider] - 1-2 days Garfield Hughes MD [STAFF PHYSICIAN] - 1-2 days
== END 2018-02-25 07:37 | disposition home or self-care (01) ==
LOC: EC 05:59
DX: H00.011 Hordeolum externum right upper eyelid (principal); K50.90 Crohn's disease, unspecified, without complications; Z88.8 Allergy status to other drugs, medicaments and biological substances; Z91.048 Other nonmedicinal substance allergy status; Z79.899 Other long term (current) drug therapy
CPT/HCPCS: 99283

== ENCOUNTER 2019-02-17 17:54 | Emergency (ER) | payer OTHER ==
[2019-02-17 17:59] VITALS: BP 126/83; PULSE 102; RESP 18; TEMP 99.4
[2019-02-17] MEDS ORDERED: ONDANSETRON ODT 4 MG TAB PO STA (18:24)
--- NOTE | 2019-02-17 19:10 | ED ---
General Adult HPI - General Chief complaint: Skin/Abscess/Foreign Body Stated complaint: abscess on leg Time Seen by Provider: 02/17/19 18:00 Source: patient Mode of arrival: ambulatory Limitations: no limitations - History of Present Illness Initial comments: Patient is 28-year-old male with history of Crohn's disease and recurrent abscesses is presenting to the emergency department with a chief complaint of an abscess. Patient reports an abscess on the lateral aspect of the left lower leg and one in the left flank region. She reports the abdominal abscess developed about a week ago. Patient reports he was able to drain most of that he usually heals on its own. Patient reports the lesion on the leg has been ongoing for the last 3 days. Patient reports tenderness in the regions. Patient reports that is staying about the same size. He denies taking medication to alleviate the symptoms. Patient denies any night sweats fevers or chills. - Related Data Home Medications Medication Instructions Recorded Confirmed Omeprazole 20 mg PO DAILY 05/03/16 02/25/18 Allergies Allergy/AdvReac Type Severity Reaction Status Date / Time prochlorperazine Allergy Unknown Verified 02/17/19 17:55 [From Compazine] silver Allergy Rash/Hives Verified 02/17/19 17:55 [From TegadeWellbeats AG Mesh] Review of Systems ROS Statement: Those systems with pertinent positive or pertinent negative responses have been documented in the HPI. ROS Other: All systems not noted in ROS Statement are negative. Past Medical History Past Medical History: Liver Disease Additional Past Medical History / Comment(s): CROHN'S History of Any Multi-Drug Resistant Organisms: None Reported Past Surgical History: Bowel Resection, Cholecystectomy Past Anesthesia/Blood Transfusion Reactions: No Reported Reaction Past Psychological History: No Psychological Hx Reported Smoking Status: Never smoker Past Alcohol Use History: None Reported Past Drug Use History: None Reported - Past Family History Mother Family Medical History: Diabetes Mellitus Additional Family Medical History / Comment(s): Heart disease Father Family Medical History: No Reported History General Exam Limitations: no limitations General appearance: alert, in no apparent distress Head exam: Present: atraumatic, normocephalic, normal inspection Eye exam: Present: normal appearance Pupils: Present: normal accommodation ENT exam: Present: normal exam, normal oropharynx, mucous membranes moist, TM's normal bilaterally, normal external ear exam Neck exam: Present: normal inspection, full ROM Respiratory exam: Present: normal lung sounds bilaterally Cardiovascular Exam: Present: regular rate, normal rhythm, normal heart sounds GI/Abdominal exam: Present: other (Abscess in the left flank region with surrounding erythema and about 2 cm of induration with no fluctuance. No drainage.) Extremities exam: Present: normal inspection, full ROM, normal capillary refill, other (Erythema on the lateral aspect of the left lower leg measuring approximately 2 cm in diameter with no induration or fluctuance. No drainage. This appears to be more cellulitic in nature.) Back exam: Present: normal inspection, full ROM Neurological exam: Present: alert, oriented X3 Psychiatric exam: Present: normal affect, normal mood Skin exam: Present: warm, dry, intact, normal color Course Vital Signs 02/17/19 17:56 Temperature 99.4 F Pulse Rate 102 H Respiratory 18 Rate Blood Pressure 126/83 O2 Sat by Pulse 98 Oximetry Medical Decision Making - Medical Decision Making Patient is a 28-year-old male with history of Crohn's disease and recurrent abscesses is presenting to the emergency department with a chief complaint of an abscess. Physical examination is indicative of an indurated abscess in the left flank region with no fluctuance or drainage. The lesion on the leg appears to be cellulitis. Bedside ultrasound performed by myself is not showing any pus pockets. Patient will be treated with Keflex and Bactrim. Strict return parameters were thoroughly discussed the patient was understanding and agreeable. Patient advised to follow-up with primary care. Case discussed physician. With Disposition Clinical Impression: Skin abscess, Cellulitis of skin Disposition: HOME SELF-CARE Condition: Stable Instructions (If sedation given, give patient instructions): Abscess (ED) Additional Instructions: Please take prescribed medication as directed. Please follow with primary care. Please return to emergency department if symptoms worsen. Is patient prescribed a controlled substance at d/c from ED?: No Referrals: None,Stated [Primary Care Provider] - 1-2 days Time of Disposition: 19:10
[2019-02-17] MEDS ORDERED: oxyCODONE ER 15 MG TAB.ER.12H PO STA (19:13)
== END 2019-02-17 19:39 | disposition home or self-care (01) ==
LOC: EC 17:54
DX: L02.416 Cutaneous abscess of left lower limb (principal); L02.211 Cutaneous abscess of abdominal wall; L03.116 Cellulitis of left lower limb; K50.90 Crohn's disease, unspecified, without complications; Z88.8 Allergy status to other drugs, medicaments and biological substances; Z91.048 Other nonmedicinal substance allergy status; Z79.899 Other long term (current) drug therapy
CPT/HCPCS: 99283

== ENCOUNTER 2019-02-18 14:44 | Emergency (ER) | payer OTHER ==
[2019-02-18 14:53] VITALS: RESP 16; TEMP 98.4
[2019-02-18] MEDS ORDERED: SODIUM CHLORIDE 0.9% 1,000 ML IV STA (15:07)
[2019-02-18] MEDS ORDERED: ONDANSETRON 4 MG/2 ML VIAL IVP STA ×2 (15:07→17:36)
--- NOTE | 2019-02-18 15:20 | ED ---
Nausea/Vomiting/Diarrhea HPI - General Chief complaint: Nausea/Vomiting/Diarrhea Stated complaint: Vomiting Time Seen by Provider: 02/18/19 14:59 Source: patient Mode of arrival: ambulatory Limitations: no limitations - History of Present Illness Initial comments: Patient is a 28-year-old male presenting to the emergency Department with complaints of nausea and vomiting that started approximately 3 AM this morning. Patient was in the ER yesterday for a possible abscess on his left lower leg and was started on Bactrim and Keflex. Patient states he has not been able to start these medications secondary to the nausea and vomiting. Patient does have a history of Crohn's and currently does have diarrhea but states that is his normal. Patient denies any abdominal pain at this time. Patient states his only pain is in his left lower leg. Patient denies fever but does admit to chills. Patient denies chest pain, shortness of breath or any other complaints at this time. Upon arrival to the ER, vital signs are stable. - Related Data Home Medications Medication Instructions Recorded Confirmed Omeprazole 20 mg PO DAILY 05/03/16 02/25/18 Previous Rx's Medication Instructions Recorded Cephalexin [Keflex] 500 mg PO Q6HR #40 cap 02/17/19 Sulfamethox-Tmp 800-160Mg [Bactrim 1 each PO Q12HR #20 tab 02/17/19 Ds] Ondansetron Odt [Zofran Odt] 4 mg PO Q8HR PRN #10 tab 02/18/19 Allergies Allergy/AdvReac Type Severity Reaction Status Date / Time prochlorperazine Allergy Unknown Verified 02/18/19 14:53 [From Compazine] silver Allergy Rash/Hives Verified 02/18/19 14:53 [From Tegaderm AG Mesh] Review of Systems ROS Statement: Those systems with pertinent positive or pertinent negative responses have been documented in the HPI. ROS Other: All systems not noted in ROS Statement are negative. Past Medical History Past Medical History: Liver Disease Additional Past Medical History / Comment(s): CROHN'S History of Any Multi-Drug Resistant Organisms: None Reported Past Surgical History: Bowel Resection, Cholecystectomy Past Anesthesia/Blood Transfusion Reactions: No Reported Reaction Past Psychological History: No Psychological Hx Reported Smoking Status: Never smoker Past Alcohol Use History: None Reported Past Drug Use History: None Reported - Past Family History Mother Family Medical History: Diabetes Mellitus Additional Family Medical History / Comment(s): Heart disease Father Family Medical History: No Reported History General Exam - General Exam Comments Initial Comments: GENERAL: Well-appearing, well-nourished and in no acute distress. HEAD: Atraumatic, normocephalic. EYES: Pupils equal round and reactive to light, extraocular movements intact, sclera anicteric, conjunctiva are normal. ENT: TMs normal, nares patent, oropharynx clear without exudates. Moist mucous membranes. NECK: Normal range of motion, supple without lymphadenopathy or JVD. LUNGS: Breath sounds clear to auscultation bilaterally and equal. No wheezes rales or rhonchi. HEART: Regular rate and rhythm without murmurs, rubs or gallops. ABDOMEN: Mild pain with palpation of the right upper quadrant. Soft, nontender, normoactive bowel sounds. No guarding, no rebound. No masses appreciated. : Deferred EXTREMITIES: Normal range of motion, no pitting or edema. No clubbing or cyanosis. NEUROLOGICAL: Cranial nerves II through XII grossly intact. Normal speech, normal gait. PSYCH: Normal mood, normal affect. SKIN: Warm, Dry, normal turgor, no rashes. Patient has a erythematous area on his left lateral lower leg consistent with cellulitis. Limitations: no limitations Course Vital Signs 02/18/19 02/18/19 14:51 17:53 Temperature 98.4 F 98.4 F Pulse Rate 95 88 Respiratory 16 16 Rate Blood Pressure 156/94 144/90 O2 Sat by Pulse 98 99 Oximetry Medical Decision Making - Medical Decision Making Patient is a 28-year-old male presenting with nausea and vomiting 1 day. Patient was in yesterday for cellulitis of his left lower leg. Patient has not been able to start his Bactrim and Keflex secondary to the nausea and vomiting. Vital signs are stable upon arrival. Lab work reveals a white count of 15.6, likely reactive. Bilirubin is elevated at 4.4, liver enzymes are also elevated. They have been elevated in the past. An acute hepatitis panel was added and is currently pending at this time. Patient has had a cholecystectomy in the past. Patient does have history of fatty liver. Patient has no belly pain at rest and mild pain of the right upper quadrant with palpation. Patient was given fluids and nausea medication and reports improvement in his symptoms. Patient will follow up with his GI doctor regarding his elevated liver enzymes. Patient will be discharged with Zofran as needed for nausea and he will start his Keflex and Bactrim for the cellulitis of his left lower leg. Patient is agreement with this plan of care. Patient is stable for discharge at this time. Return parameters were discussed with the patient he verbalizes understanding. Case discussed with Dr. Sebastian. - Lab Data Result diagrams: 02/18/19 15:18 02/18/19 15:18 Lab Results 02/18/19 02/18/19 02/18/19 Range/Units 15:18 15:18 16:35 WBC 15.6 H (3.8-10.6) k/uL RBC 5.56 (4.30-5.90) m/uL Hgb 16.7 (13.0-17.5) gm/dL Hct 49.9 (39.0-53.0) % MCV 89.8 (80.0-100.0) fL MCH 30.0 (25.0-35.0) pg MCHC 33.4 (31.0-37.0) g/dL RDW 12.2 (11.5-15.5) % Plt Count 333 (150-450) k/uL Neutrophils % 83 % Lymphocytes % 8 % Monocytes % 5 % Eosinophils % 0 % Basophils % 1 % Neutrophils # 13.0 H (1.3-7.7) k/uL Lymphocytes # 1.3 (1.0-4.8) k/uL Monocytes # 0.8 (0-1.0) k/uL Eosinophils # 0.1 (0-0.7) k/uL Basophils # 0.2 (0-0.2) k/uL Sodium 139 (137-145) mmol/L Potassium 4.7 (3.5-5.1) mmol/L Chloride 105 (98-107) mmol/L Carbon Dioxide 20 L (22-30) mmol/L Anion Gap 14 mmol/L BUN 12 (9-20) mg/dL Creatinine 1.04 (0.66-1.25) mg/dL Est GFR (CKD-EPI)AfAm >90 (>60 ml/min/1.73 sqM) Est GFR (CKD-EPI)NonAf >90 (>60 ml/min/1.73 sqM) Glucose 103 H (74-99) mg/dL Calcium 10.3 H (8.4-10.2) mg/dL Total Bilirubin 4.4 H (0.2-1.3) mg/dL AST 300 H (17-59) U/L ALT 508 H (21-72) U/L Alkaline Phosphatase 159 H (38-126) U/L Total Protein 9.1 H (6.3-8.2) g/dL Albumin 5.1 H (3.5-5.0) g/dL Amylase 142 H (30-110) U/L Lipase 118 (23-300) U/L Hepatitis A IgM Ab NEGATIVE Disposition Clinical Impression: Nausea & vomiting, History of Crohn's disease, Elevated liver enzymes Disposition: HOME SELF-CARE Condition: Stable Instructions (If sedation given, give patient instructions): Acute Nausea and Vomiting (ED) Additional Instructions: Please return to the Emergency Department if symptoms worsen or any other concerns. Follow up with GI doctor as discussed. Continue to increase fluid intake and introduce foods slow. Prescriptions: Ondansetron Odt [Zofran Odt] 4 mg PO Q8HR PRN #10 tab PRN Reason: Nausea Is patient prescribed a controlled substance at d/c from ED?: No Referrals: None,Stated [Primary Care Provider] - 1-2 days
[2019-02-18] MEDS ORDERED: KETOROLAC 30 MG/ML 1 ML VIAL IVP STA (15:21)
[2019-02-18 15:33] LABS: Basophils # (A) 0.2 k/uL (0-0.2); Basophils % (A) 1 %; Eosinophils # (A) 0.1 k/uL (0-0.7); Eosinophils % (A) 0 %; HCT 49.9 % (39.0-53.0); HGB 16.7 gm/dL (13.0-17.5); Lymphocytes # (A) 1.3 k/uL (1.0-4.8); Lymphocytes % (A) 8 %; MCHC 33.4 g/dL (31.0-37.0); MCV 89.8 fL (80.0-100.0); Mean Platelet Volume 6.9; Monocytes # (A) 0.8 k/uL (0-1.0); Monocytes % (A) 5 %; Neutrophils % (A) 83 %; Platelet Count 333 k/uL (150-450); RBC 5.56 m/uL (4.30-5.90); RDW 12.2 % (11.5-15.5); WBC 15.6 k/uL (3.8-10.6)
[2019-02-18 15:42] LABS: ALT 508 U/L (21-72); AST 300 U/L (17-59); African American GFR (CKD) >90 (>60 ml/min/1.73 sqM); Albumin 5.1 g/dL (3.5-5.0); Alkaline Phosphatase 159 U/L (38-126); Amylase 142 U/L (30-110); Anion Gap 14 mmol/L; Blood Urea Nitrogen 12 mg/dL (9-20); Calcium 10.3 mg/dL (8.4-10.2); Carbon Dioxide 20 mmol/L (22-30); Chloride 105 mmol/L (98-107); Glucose 103 mg/dL (74-99); Potassium 4.7 mmol/L (3.5-5.1); Sodium 139 mmol/L (137-145); Total Bilirubin 4.4 mg/dL (0.2-1.3); Total Protein 9.1 g/dL (6.3-8.2)
[2019-02-18 17:22] LABS: Hepatitis A Antibody IgM NEGATIVE
[2019-02-18] MEDS ORDERED: ONDANSETRON 4 MG ODT STARTER PACK 2 TAB BTL PO STA (17:36)
[2019-02-18 17:56] VITALS: BP 144/90; PULSE 88
[2019-02-19 00:01] LABS: Hepatitis B Core IgM Non-Reactive (Non-Reactive); Hepatitis B Surface Antigen Non-Reactive (Non-Reactive); Hepatitis C IgG Antibody Non-Reactive (Non-Reactive)
== END 2019-02-18 17:56 | disposition home or self-care (01) ==
LOC: EC 14:44
DX: R11.2 Nausea with vomiting, unspecified (principal); R74.8 Abnormal levels of other serum enzymes; L03.116 Cellulitis of left lower limb; R79.89 Other specified abnormal findings of blood chemistry; R10.11 Right upper quadrant pain; R19.7 Diarrhea, unspecified; K50.90 Crohn's disease, unspecified, without complications; Z88.8 Allergy status to other drugs, medicaments and biological substances; Z91.048 Other nonmedicinal substance allergy status; Z79.899 Other long term (current) drug therapy; Z90.49 Acquired absence of other specified parts of digestive tract
CPT/HCPCS: 36415; 80053; 80074; 82150; 83690; 85025; 99284; 96374; 96375; 96376; 96361; J2405; J1885; S0119

== ENCOUNTER 2020-02-02 08:34 | Emergency (ER) | payer BC, OTHER ==
[2020-02-02 08:40] VITALS: BP 139/88; PULSE 84; RESP 18; TEMP 98.9
--- NOTE | 2020-02-02 09:03 | ED ---
General Adult HPI - General Chief complaint: Recheck/Abnormal Lab/Rx Stated complaint: PICC line problems Time Seen by Provider: 02/02/20 08:42 Source: patient, RN notes reviewed Mode of arrival: ambulatory Limitations: no limitations - History of Present Illness Initial comments: Patient is a pleasant 29-year-old male using to the emergency department with problems with his PICC line. Patient states it was placed around 1 week ago. Patient does have Crohn's and is on Cefazolin 3 times daily for this. Patient states when he gave his last antibiotics this morning most of it leaked out from under the dressing. Patient states it did feel what and minimal discomfort. No history of similar problems previously. No discomfort or problems at this time. - Related Data Home Medications Medication Instructions Recorded Confirmed Omeprazole 20 mg PO DAILY 05/03/16 02/25/18 Previous Rx's Medication Instructions Recorded Cephalexin [Keflex] 500 mg PO Q6HR #40 cap 02/17/19 Sulfamethox-Tmp 800-160Mg [Bactrim 1 each PO Q12HR #20 tab 02/17/19 Ds] Ondansetron Odt [Zofran Odt] 4 mg PO Q8HR PRN #10 tab 02/18/19 Allergies Allergy/AdvReac Type Severity Reaction Status Date / Time prochlorperazine Allergy Unknown Verified 02/18/19 14:53 [From Compazine] silver Allergy Rash/Hives Verified 02/18/19 14:53 [From Tegaderm AG Mesh] vancomycin Allergy Rash/Hives Verified 02/02/20 08:40 Review of Systems ROS Statement: Those systems with pertinent positive or pertinent negative responses have been documented in the HPI. ROS Other: All systems not noted in ROS Statement are negative. Constitutional: Denies: fever Eyes: Denies: eye pain ENT: Denies: ear pain Respiratory: Denies: cough Cardiovascular: Denies: chest pain Endocrine: Denies: fatigue Gastrointestinal: Denies: abdominal pain Genitourinary: Denies: dysuria Musculoskeletal: Denies: back pain Skin: Denies: rash Past Medical History Past Medical History: Liver Disease Additional Past Medical History / Comment(s): CROHN'S History of Any Multi-Drug Resistant Organisms: None Reported Past Surgical History: Bowel Resection, Cholecystectomy Past Anesthesia/Blood Transfusion Reactions: No Reported Reaction Past Psychological History: No Psychological Hx Reported Smoking Status: Never smoker Past Alcohol Use History: None Reported Past Drug Use History: None Reported - Past Family History Mother Family Medical History: Diabetes Mellitus Additional Family Medical History / Comment(s): Heart disease Father Family Medical History: No Reported History General Exam Limitations: no limitations General appearance: alert, in no apparent distress Head exam: Present: normocephalic Neck exam: Present: normal inspection Respiratory exam: Present: normal lung sounds bilaterally Cardiovascular Exam: Present: regular rate, normal rhythm Extremities exam: Present: other (Left upper arm medial with PICC line in place. No swelling or tenderness or erythema. No discharge.) Neurological exam: Present: alert Psychiatric exam: Present: normal affect, normal mood Skin exam: Present: normal color. Absent: rash Course Vital Signs 02/02/20 08:38 Temperature 98.9 F Pulse Rate 84 Respiratory 18 Rate Blood Pressure 139/88 O2 Sat by Pulse 99 Oximetry Medical Decision Making - Medical Decision Making I did flush the PICC line with 20 mL of normal saline. There was approximately less than 0.5 mL drainage from the skin. Patient states it did feel cold with minimal discomfort. Case was discussed with Dr. Mir who will change PICC line. Disposition Clinical Impression: Occlusion of peripherally inserted central catheter (PICC) line Disposition: HOME SELF-CARE Condition: Stable Instructions (If sedation given, give patient instructions): How to Flush Your PICC or Midline Catheter (ED), Peripherally Inserted Central Catheters and Midline Catheters (DC) Additional Instructions: Patient to go to [facility] for PICC line change. Patient to be discharged following this. Please follow-up with your primary care physician in the next day or 2 for recheck as well as DrGlenda prescribing your antibiotics. Return for difficulty in breathing, PICC line problems, pain, worsening symptoms or other concerns. Is patient prescribed a controlled substance at d/c from ED?: No Referrals: Mitchel Vidal [STAFF PHYSICIAN] - 1-2 days Time of Disposition: 09:02
== END 2020-02-02 09:50 | disposition home or self-care (01) ==
LOC: EC 08:34
DX: T82.898A Other specified complication of vascular prosthetic devices, implants and grafts, initial encounter (principal); Z79.899 Other long term (current) drug therapy; Z88.8 Allergy status to other drugs, medicaments and biological substances; Z91.048 Other nonmedicinal substance allergy status; Z88.1 Allergy status to other antibiotic agents
CPT/HCPCS: 99283

== ENCOUNTER 2020-10-07 08:26 | Emergency (ER) | payer BC ==
[2020-10-07 08:35] VITALS: BP 116/82; PULSE 93; RESP 20; TEMP 98.2
--- NOTE | 2020-10-07 09:36 | ED ---
Skin/Abscess/FB HPI - General Chief complaint: Skin/Abscess/Foreign Body Stated complaint: Chrohns flare up Time Seen by Provider: 10/07/20 08:44 Source: patient Mode of arrival: ambulatory Limitations: no limitations - History of Present Illness Initial comments: Patient is a 30-year-old male presenting to the emergency Department with complaints of a possible abscess on his right side. Patient states he "has Crohn's and sometimes gets abscesses." He denies any fevers or chills, nausea or vomiting. He states the splinter for about 4 days. He has not tried any warm compresses. He is concerned that he needs antibiotics. There are no further complaints at this time. - Related Data Home Medications Medication Instructions Recorded Confirmed Omeprazole 20 mg PO DAILY 05/03/16 02/25/18 Previous Rx's Medication Instructions Recorded Cephalexin [Keflex] 500 mg PO Q6HR #40 cap 02/17/19 Sulfamethox-Tmp 800-160Mg [Bactrim 1 each PO Q12HR #20 tab 02/17/19 Ds] Ondansetron Odt [Zofran Odt] 4 mg PO Q8HR PRN #10 tab 02/18/19 Cephalexin [Keflex] 500 mg PO Q6HR 5 Days #20 cap 10/07/20 Allergies Allergy/AdvReac Type Severity Reaction Status Date / Time prochlorperazine Allergy Unknown Verified 10/07/20 08:36 [From Compazine] silver Allergy Rash/Hives Verified 10/07/20 08:36 [From Tegaderm AG Mesh] vancomycin Allergy Rash/Hives Verified 10/07/20 08:36 Review of Systems ROS Statement: Those systems with pertinent positive or pertinent negative responses have been documented in the HPI. ROS Other: All systems not noted in ROS Statement are negative. Past Medical History Past Medical History: Liver Disease Additional Past Medical History / Comment(s): CROHN'S History of Any Multi-Drug Resistant Organisms: None Reported Past Surgical History: Bowel Resection, Cholecystectomy Past Anesthesia/Blood Transfusion Reactions: No Reported Reaction Past Psychological History: No Psychological Hx Reported Smoking Status: Never smoker Past Alcohol Use History: None Reported Past Drug Use History: None Reported - Past Family History Mother Family Medical History: Diabetes Mellitus Additional Family Medical History / Comment(s): Heart disease Father Family Medical History: No Reported History General Exam - General Exam Comments Initial Comments: GENERAL: Patient is well-developed and well-nourished. Patient is nontoxic and in no acute distress. HEAD: Atraumatic, normocephalic. EYES: Pupils equal round and reactive to light, extraocular movements intact, sclera anicteric, conjunctiva are normal. Eyelids were unremarkable. ENT: Moist mucous membranes. NECK: Normal range of motion, supple without lymphadenopathy or JVD. LUNGS: Unlabored respirations. Breath sounds clear to auscultation bilaterally and equal. No wheezes rales or rhonchi. HEART: Regular rate and rhythm without murmurs, rubs or gallops. ABDOMEN: Soft, nontender, normoactive bowel sounds. No guarding, no rebound. No masses appreciated. : Deferred MUSCULOSKELETAL: Normal extremities with adequate strength and normal range of motion, no pitting or edema. No clubbing or cyanosis. SKIN: Warm, Dry, normal turgor, no rashes. Patient has a small 1 cm abscess on the right side, it is very indurated, no area of fluctuance, mild erythema present. Limitations: no limitations Course Vital Signs 10/07/20 08:33 Temperature 98.2 F Pulse Rate 93 Respiratory 20 Rate Blood Pressure 116/82 O2 Sat by Pulse 99 Oximetry Medical Decision Making - Medical Decision Making Patient is a 30-year-old male here with a 1 cm abscess to the right side. He states he gets these often. The area is very indurated, I&D is not indicated at this time. Patient will be placed on Keflex, recommended warm compresses. He is stable for discharge. Disposition Clinical Impression: Abscess of skin of abdomen Disposition: HOME SELF-CARE Condition: Stable Instructions (If sedation given, give patient instructions): Abscess (ED) Additional Instructions: Please return to the Emergency Department if symptoms worsen or any other concerns. Take antibiotic as prescribed. Continue with warm compresses to the areas as discussed. Follow up with your primary care physician. Prescriptions: Cephalexin [Keflex] 500 mg PO Q6HR 5 Days #20 cap Is patient prescribed a controlled substance at d/c from ED?: No Referrals: None,Stated [Primary Care Provider] - 1-2 days Time of Disposition: 09:36
== END 2020-10-07 10:02 | disposition home or self-care (01) ==
LOC: EC 08:26
DX: L02.211 Cutaneous abscess of abdominal wall (principal); Z90.49 Acquired absence of other specified parts of digestive tract
CPT/HCPCS: 99283

== ENCOUNTER 2020-10-08 15:56 | Emergency (ER) | payer BC, MEDICARE ==
[2020-10-08 16:00] VITALS: BP 139/85; PULSE 115; RESP 20; TEMP 98.1
[2020-10-08] MEDS ORDERED: ACET/COD 300 MG/30 MG STARTER PACK 6 TAB BTL PO STA (16:32)
[2020-10-08] MEDS ORDERED: SULFAMETH-TMP DS STARTER PACK 2 TAB BTL PO STA (16:32)
--- NOTE | 2020-10-08 16:39 | ED ---
Skin/Abscess/FB HPI - General Chief complaint: Skin/Abscess/Foreign Body Stated complaint: Abscess on Skin Time Seen by Provider: 10/08/20 16:04 Source: patient Mode of arrival: ambulatory Limitations: no limitations - History of Present Illness Initial comments: 30-year-old male with history of Crohn's and abscesses presents emergency Department with a chief complaint of an abscess. Patient reports he does have history of recurrent abscesses that can occurred in location throughout his body likely related to her Crohn's. However, he does not have history of MRSA. States he was seen in emergency department yesterday for same chief complaint. States she was discharged with Keflex. States no abscesses were incised and drained. Patient reports he has an abscess on the right flank region and on the base of the penis. He denies any lymph nodes. He is not sexually active. No concern for STDs. Denies any fevers or chills nausea vomiting. - Related Data Home Medications Medication Instructions Recorded Confirmed Omeprazole 20 mg PO DAILY 05/03/16 02/25/18 Previous Rx's Medication Instructions Recorded Cephalexin [Keflex] 500 mg PO Q6HR #40 cap 02/17/19 Sulfamethox-Tmp 800-160Mg [Bactrim 1 each PO Q12HR #20 tab 02/17/19 Ds] Ondansetron Odt [Zofran Odt] 4 mg PO Q8HR PRN #10 tab 02/18/19 Cephalexin [Keflex] 500 mg PO Q6HR 5 Days #20 cap 10/07/20 Sulfamethox-Tmp 800-160Mg [Bactrim 1 each PO Q12HR #20 tab 10/08/20 Ds] Allergies Allergy/AdvReac Type Severity Reaction Status Date / Time prochlorperazine Allergy Unknown Verified 10/08/20 16:00 [From Compazine] silver Allergy Rash/Hives Verified 10/08/20 16:00 [From Tegaderm AG Mesh] vancomycin Allergy Rash/Hives Verified 10/08/20 16:00 Review of Systems ROS Statement: Those systems with pertinent positive or pertinent negative responses have been documented in the HPI. ROS Other: All systems not noted in ROS Statement are negative. Past Medical History Past Medical History: Liver Disease Additional Past Medical History / Comment(s): CROHN'S History of Any Multi-Drug Resistant Organisms: None Reported Past Surgical History: Bowel Resection, Cholecystectomy Past Anesthesia/Blood Transfusion Reactions: No Reported Reaction Past Psychological History: No Psychological Hx Reported Smoking Status: Never smoker Past Alcohol Use History: None Reported Past Drug Use History: None Reported - Past Family History Mother Family Medical History: Diabetes Mellitus Additional Family Medical History / Comment(s): Heart disease Father Family Medical History: No Reported History General Exam Limitations: no limitations General appearance: alert, in no apparent distress Head exam: Present: atraumatic, normocephalic, normal inspection Eye exam: Present: normal appearance, PERRL, EOMI Pupils: Present: normal accommodation ENT exam: Present: normal exam, normal oropharynx, mucous membranes moist Neck exam: Present: normal inspection, full ROM. Absent: tenderness, meningismus, lymphadenopathy Respiratory exam: Present: normal lung sounds bilaterally. Absent: respiratory distress, wheezes, rales Cardiovascular Exam: Present: regular rate, normal rhythm, normal heart sounds exam: Absent: normal inspection (Small lesion at the base of the penis, not fluctuant and just indurated.), other (No inguinal lymph nodes were noted.) Extremities exam: Present: normal inspection, full ROM Back exam: Present: normal inspection, full ROM. Absent: tenderness Neurological exam: Present: alert, oriented X3 Psychiatric exam: Present: normal affect, normal mood Skin exam: Present: warm, dry, intact, normal color, other (Lesion on the right flank region on his body. It appears to be only indurated at this time, not fluctuant. No discharge was noted.) Course Vital Signs 10/08/20 15:57 Temperature 98.1 F Pulse Rate 115 H Respiratory 20 Rate Blood Pressure 139/85 O2 Sat by Pulse 97 Oximetry Medical Decision Making - Medical Decision Making 30-year-old male presents emergency Department with a chief complaint of an abscess. On physical examination, he has multiple abscesses. Only induration with no fluctuance. No incision and drainage necessary at this time. We will add Bactrim in addition to the Keflex. Also will discharge him with Tylenol 3 starter pack. Advised him on wound care. Also advised to follow with the primary care physician. Return parameters were thoroughly discussed the patient is an attending ago. Case discussed with Dr. Brunson. Disposition Clinical Impression: Abscess of multiple sites Disposition: HOME SELF-CARE Condition: Stable Instructions (If sedation given, give patient instructions): Abscess (ED) Additional Instructions: Please return to the Emergency Department if symptoms worsen or any other concerns. Prescriptions: Sulfamethox-Tmp 800-160Mg [Bactrim Ds] 1 each PO Q12HR #20 tab Is patient prescribed a controlled substance at d/c from ED?: No Referrals: None,Stated [Primary Care Provider] - 1-2 days Time of Disposition: 16:39
== END 2020-10-08 16:50 | disposition home or self-care (01) ==
LOC: EC 15:56
DX: L02.211 Cutaneous abscess of abdominal wall (principal); N48.21 Abscess of corpus cavernosum and penis; Z82.49 Family history of ischemic heart disease and other diseases of the circulatory system; Z83.3 Family history of diabetes mellitus; Z88.8 Allergy status to other drugs, medicaments and biological substances
CPT/HCPCS: 99283

== ENCOUNTER 2022-03-28 11:03 | Emergency (ER) | payer MEDICARE ==
[2022-03-28 11:11] VITALS: RESP 18
--- NOTE | 2022-03-28 11:21 | ED ---
Skin/Abscess/FB HPI - General Chief complaint: Skin/Abscess/Foreign Body Stated complaint: Facial Swelling Time Seen by Provider: 03/28/22 11:10 Source: patient, RN notes reviewed Mode of arrival: ambulatory Limitations: no limitations - History of Present Illness Initial comments: 31-year-old male presents emergency Department chief complaint of facial swelling. Patient states his recurrent ingrown has, skin infection secondary to his Crohn's disease. Patient states that he has no difficult swallowing, breathing. Patient states he pulled out the hair but states that is some swelling mild discomfort control with Tylenol. Patient denies any headache dizziness night sweats. - Related Data Home Medications Medication Instructions Recorded Confirmed Omeprazole 20 mg PO DAILY 05/03/16 02/25/18 Previous Rx's Medication Instructions Recorded Cephalexin [Keflex] 500 mg PO Q6HR #40 cap 02/17/19 Sulfamethox-Tmp 800-160Mg [Bactrim 1 each PO Q12HR #20 tab 02/17/19 Ds] Ondansetron Odt [Zofran Odt] 4 mg PO Q8HR PRN #10 tab 02/18/19 Cephalexin [Keflex] 500 mg PO Q6HR 5 Days #20 cap 10/07/20 Sulfamethox-Tmp 800-160Mg [Bactrim 1 each PO Q12HR #20 tab 10/08/20 Ds] Dicyclomine [Bentyl] 20 mg PO TID #15 tablet 07/20/21 Ondansetron Odt [Zofran Odt] 4 mg PO Q8HR PRN #10 tab 07/20/21 Cephalexin [Keflex] 500 mg PO Q6HR #28 cap 03/28/22 Sulfamethox-Tmp 800-160Mg [Bactrim 1 each PO Q12HR #14 tab 03/28/22 Ds] Allergies Allergy/AdvReac Type Severity Reaction Status Date / Time prochlorperazine Allergy Unknown Verified 03/28/22 11:07 [From Compazine] silver Allergy Rash/Hives Verified 03/28/22 11:07 [From Tegaderm AG Mesh] vancomycin Allergy Rash/Hives Verified 03/28/22 11:07 Review of Systems ROS Statement: Those systems with pertinent positive or pertinent negative responses have been documented in the HPI. ROS Other: All systems not noted in ROS Statement are negative. Past Medical History Past Medical History: Liver Disease Additional Past Medical History / Comment(s): CROHN'S History of Any Multi-Drug Resistant Organisms: None Reported Past Surgical History: Bowel Resection, Cholecystectomy Past Anesthesia/Blood Transfusion Reactions: No Reported Reaction Past Psychological History: No Psychological Hx Reported Smoking Status: Never smoker Past Alcohol Use History: None Reported Past Drug Use History: None Reported - Past Family History Mother Family Medical History: Diabetes Mellitus Additional Family Medical History / Comment(s): Heart disease Father Family Medical History: No Reported History General Exam Limitations: no limitations General appearance: alert, in no apparent distress Head exam: Present: atraumatic, normocephalic, normal inspection Eye exam: Present: normal appearance, PERRL, EOMI. Absent: scleral icterus, conjunctival injection, periorbital swelling ENT exam: Present: normal oropharynx, mucous membranes moist, TM's normal bilaterally. Absent: normal exam (Mild left nostril swelling at the opening, left upper lip) Neck exam: Present: normal inspection, full ROM. Absent: tenderness, meningismus, lymphadenopathy Respiratory exam: Present: normal lung sounds bilaterally. Absent: respiratory distress, wheezes, rales, rhonchi, stridor Cardiovascular Exam: Present: regular rate, normal rhythm, normal heart sounds. Absent: systolic murmur, diastolic murmur, rubs, gallop, clicks Course Vital Signs 03/28/22 11:07 Temperature 98.7 F Pulse Rate 78 Respiratory 18 Rate Blood Pressure 128/78 O2 Sat by Pulse 95 Oximetry Medical Decision Making - Medical Decision Making Was pt. sent in by a medical professional or institution? @No Did you speak to anyone other than the patient for history? @No Did you review nursing and triage notes? @Reviewed and agreed Were old charts reviewed? @No Differential Diagnosis? @Facial abscess, facial cellulitis, infected ingrown hair, nasal abscess, EKG interpreted by me (3pts min.)? @ [none] X-rays interpreted by me (1pt min.)? @ [none] CT interpreted by me (1pt min.)? @ [none] U/S interpreted by me (1pt. min.)? @ [none] What testing was considered but not performed? (CT, X-rays, U/S, labs)? Why? @Consider CT secondary to facial swelling though symptoms just started risk versus benefits outweighed, started on oral antibiotics What meds were considered but not given? Why? @Pain meds were considered, offer the patient patient declined. Did you discuss the management of the patient with other professionals? @Attending Dr. Arguelles Did you reconcile home meds? @ [none] Was smoking cessation discussed for >3mins.? @ [none] Was critical care preformed (if so, how long)? @ [none] Were there social determinants of health that impacted care today? How? (Homelessness, low income, unemployed, alcoholism, drug addiction, transportation, low edu. Level, literacy, decrease access to med. care, halfway, rehab)? none Was there de-escalation of care discussed even if they declined? (Discuss DNR or withdrawal of care, Hospice)? @NA What co-morbidities impacted this encounter? (DM, HTN, Smoking, COPD, CAD, Cancer, CVA, Hep., AIDS, mental health diagnosis, sleep apnea, morbid obesity)? @None Was patient admitted / discharged? @Discharged Undiagnosed new problem with uncertain prognosis? @ [none] Drug Therapy requiring intensive monitoring for toxicity (Heparin, Nitro, Insulin, Cardizem)? @ [none] Were any procedures done? @ [none] Diagnosis/symptom? @Facial abscess Acute, or Chronic, or Acute on Chronic? @acute Uncomplicated (without systemic symptoms) or Complicated (systemic symptoms)? @Uncomplicated Side effects of treatment? @ [none] Exacerbation, Progression, or Severe Exacerbation] @ [no] Poses a threat to life or bodily function? @ [no] Disposition Clinical Impression: Facial abscess Disposition: HOME SELF-CARE Condition: Stable Instructions (If sedation given, give patient instructions): Abscess (ED) Additional Instructions: Please return to the Emergency Department if symptoms worsen or any other concerns. Prescriptions: Sulfamethox-Tmp 800-160Mg [Bactrim Ds] 1 each PO Q12HR #14 tab Cephalexin [Keflex] 500 mg PO Q6HR #28 cap Is patient prescribed a controlled substance at d/c from ED?: No Referrals: None,Stated [Primary Care Provider] - 1-2 days Time of Disposition: 11:21
[2022-03-28 11:49] VITALS: BP 122/78; PULSE 80; TEMP 98.8
== END 2022-03-28 11:44 | disposition home or self-care (01) ==
LOC: EC 11:03
DX: L02.01 Cutaneous abscess of face (principal); Z88.1 Allergy status to other antibiotic agents
CPT/HCPCS: 99283

== ENCOUNTER 2022-11-10 09:49 | Emergency (ER) | payer MEDICARE ==
[2022-11-10 09:53] VITALS: BP 124/84; PULSE 90; RESP 18; TEMP 98.4
--- NOTE | 2022-11-10 10:15 | ED ---
ENT HPI - General Chief complaint: ENT Stated complaint: ear pain Time Seen by Provider: 11/10/22 09:59 Source: patient, RN notes reviewed, old records reviewed Mode of arrival: ambulatory Limitations: no limitations - History of Present Illness Initial comments: 32-year-old male presents to the emergency room with complaints of bilateral ear pain for past two days. Denies any congestion. States in the past he has had abscesses and was concerned for a forming abscess. Denies any fevers. No nausea vomiting or diarrhea. Immunizations are up-to-date. -: days(s) (2) Location: R ear, L ear (tragus) Severity scale (1-10): 4 Quality: constant Consistency: constant Improves with: none Worsens with: other (palpation) - Related Data Home Medications Medication Instructions Recorded Confirmed Omeprazole 20 mg PO DAILY 05/03/16 02/25/18 Previous Rx's Medication Instructions Recorded Cephalexin [Keflex] 500 mg PO Q6HR #40 cap 02/17/19 Sulfamethox-Tmp 800-160Mg [Bactrim 1 each PO Q12HR #20 tab 02/17/19 Ds] Ondansetron Odt [Zofran Odt] 4 mg PO Q8HR PRN #10 tab 02/18/19 Cephalexin [Keflex] 500 mg PO Q6HR 5 Days #20 cap 10/07/20 Sulfamethox-Tmp 800-160Mg [Bactrim 1 each PO Q12HR #20 tab 10/08/20 Ds] Dicyclomine [Bentyl] 20 mg PO TID #15 tablet 07/20/21 Ondansetron Odt [Zofran Odt] 4 mg PO Q8HR PRN #10 tab 07/20/21 Cephalexin [Keflex] 500 mg PO Q6HR #28 cap 03/28/22 Sulfamethox-Tmp 800-160Mg [Bactrim 1 each PO Q12HR #14 tab 03/28/22 Ds] Allergies Allergy/AdvReac Type Severity Reaction Status Date / Time prochlorperazine Allergy Unknown Verified 11/10/22 09:52 [From Compazine] silver Allergy Rash/Hives Verified 11/10/22 09:52 [From Tegaderm AG Mesh] vancomycin Allergy Rash/Hives Verified 11/10/22 09:52 Review of Systems ROS Statement: Those systems with pertinent positive or pertinent negative responses have been documented in the HPI. ROS Other: All systems not noted in ROS Statement are negative. Past Medical History Past Medical History: Liver Disease Additional Past Medical History / Comment(s): CROHN'S History of Any Multi-Drug Resistant Organisms: None Reported Past Surgical History: Bowel Resection, Cholecystectomy Past Anesthesia/Blood Transfusion Reactions: No Reported Reaction Past Psychological History: No Psychological Hx Reported Smoking Status: Never smoker Past Alcohol Use History: None Reported Past Drug Use History: Marijuana - Past Family History Mother Family Medical History: Diabetes Mellitus Additional Family Medical History / Comment(s): Heart disease Father Family Medical History: No Reported History General Exam Limitations: no limitations General appearance: alert, in no apparent distress Head exam: Present: atraumatic, normocephalic Eye exam: Present: normal appearance. Absent: scleral icterus, conjunctival injection, periorbital swelling ENT exam: Present: mucous membranes moist Expanded Ear exam: Present: normal external inspection, other (pain to palpation left tragus with minimal swelling no errythema or drainage, no abscess noted). Absent: auricular hematoma, auricular trauma Neck exam: Present: full ROM. Absent: tenderness, meningismus, lymphadenopathy Respiratory exam: Absent: respiratory distress, accessory muscle use Cardiovascular Exam: Present: regular rate Neurological exam: Present: alert, oriented X3, normal gait Psychiatric exam: Present: normal affect, normal mood Skin exam: Present: warm, dry, normal color. Absent: cyanosis, diaphoretic, petechiae, pallor Course Vital Signs 11/10/22 09:51 Temperature 98.4 F Pulse Rate 90 Respiratory 18 Rate Blood Pressure 124/84 O2 Sat by Pulse 98 Oximetry Medical Decision Making - Medical Decision Making 32-year-old male presents to the emergency room with complaints of bilateral ear pain for past two days. Denies any congestion. States in the past he has had abscesses and was concerned for a forming abscess. Denies any fevers. No nausea vomiting or diarrhea. Immunizations are up-to-date. On physical exam there is no evidence of abscess. Tympanic membranes are clear. Auditory canal non-erythematous with no cerumen impaction. Nares are patent. No lymphadenopathy. Vital signs are stable and patient is afebrile. Patient was offered Tylenol or Motrin and declined. Patient was encouraged to use warm moist compresses multiple times a day to the areas of pain. Tylenol and/or Motrin as needed for pain. Follow-up with his primary care doctor next week. Return to emergency room with any new or concerning symptoms including fever, increased swelling, pain or drainage. He is agreeable to this plan of care. Case discussed with Dr. Looney. Was pt. sent in by a medical professional or institution (, GRAY, BISCUIT FACTORY WORKER, urgent care, hospital, or detention...) When possible be specific @ -No Did you speak to anyone other than the patient for history (EMS, parent, family, police, friend...)? What history was obtained from this source @ -No Did you review nursing and triage notes (agree or disagree)? Why? @ -I reviewed and agree with nursing and triage notes Were old charts reviewed (outside hosp., previous admission, EMS record, old EKG, old radiological studies, urgent care reports/EKG's, detention records)? Report findings @ -No old charts were reviewed Differential Diagnosis (chest pain, altered mental status, abdominal pain women, abdominal pain men, vaginal bleeding, weakness, fever, dyspnea, syncope, headache, dizziness, GI bleed, back pain, seizure, CVA, palpatations, mental health, musculoskeletal)? @ -Otitis media, otitis externa, sinus congestion, abscess, foreign body, dermatitis EKG interpreted by me (3pts min.). @ -n/a X-rays interpreted by me (1pt min.). @ -None done CT interpreted by me (1pt min.). @ -None done U/S interpreted by me (1pt. min.). @ -None done What testing was considered but not performed or refused? (CT, X-rays, U/S, labs)? Why? @ -None What meds were considered but not given or refused? Why? @ -offered Tylenol and or Motrin and declined. Antibiotics were considered however no evidence of erythema or infectious process. Did you discuss the management of the patient with other professionals (professionals i.e. , GRAY, BISCUIT FACTORY WORKER, lab, RT, psych nurse, transition social worker, detective private eye, teacher, vessel traffic officer, pillowcase cutter)? Give summary @ -No Was smoking cessation discussed for >3mins.? @ -No Was critical care preformed (if so, how long)? @ -No Were there social determinants of health that impacted care today? How? (Homele ssness, low income, unemployed, alcoholism, drug addiction, transportation, low edu. Level, literacy, decrease access to med. care, [facility], rehab)? @ -No Was there de-escalation of care discussed even if they declined (Discuss DNR or withdrawal of care, Hospice)? DNR status @ -No What co-morbidities impacted this encounter? (DM, HTN, Smoking, COPD, CAD, Cancer, CVA, ARF, Chemo, Hep., AIDS, mental health diagnosis, sleep apnea, morbid obesity)? @ -Crohn's disease Was patient admitted / discharged? Hospital course, mention meds given and route, prescriptions, significant lab abnormalities, going to OR and other pertinent info. @ -Discharged Undiagnosed new problem with uncertain prognosis? @ -No Drug Therapy requiring intensive monitoring for toxicity (Heparin, Nitro, Insulin, Cardizem)? @ -No Were any procedures done? @ -No Diagnosis/symptom? @ -External ear pain Acute, or Chronic, or Acute on Chronic? @ -Acute Uncomplicated (without systemic symptoms) or Complicated (systemic symptoms)? @ -Uncomplicated Side effects of treatment? @ -No Exacerbation, Progression, or Severe Exacerbation? @ -No Poses a threat to life or bodily function? How? (Chest pain, [place], [place], pneumonia, PE, COPD, DKA, ARF, appy, cholecystitis, CVA, Diverticulitis, Homicidal, Suicidal, threat to staff... and all critical care pts) @ -No Disposition Clinical Impression: Ear pain, left Disposition: HOME SELF-CARE Condition: Good Instructions (If sedation given, give patient instructions): Earache (ED) Additional Instructions: Use warm moist compresses multiple times a day. Tylenol and or Motrin as needed for any pain or discomfort. Follow-up with your primary care doctor next week. Return to the emergency room with any new or concerning symptoms including fever, increased swelling or drainage. Is patient prescribed a controlled substance at d/c from ED?: No Referrals: None,Stated [Primary Care Provider] - 1-2 days Time of Disposition: 10:14
== END 2022-11-10 10:30 | disposition home or self-care (01) ==
LOC: EC 09:49
DX: H92.02 Otalgia, left ear (principal); H92.01 Otalgia, right ear; F12.90 Cannabis use, unspecified, uncomplicated; Z88.1 Allergy status to other antibiotic agents; Z88.8 Allergy status to other drugs, medicaments and biological substances
CPT/HCPCS: 99282